=== PATIENT | male | born 1990 | race Caucasian/White ===

== ENCOUNTER 2020-11-30 11:43 | Emergency (ER) | payer SELFPAY ==
[2020-11-30] MEDS ORDERED: Ketorolac 30 MG/ML SDV IM ONE (13:17)
--- NOTE | 2020-11-30 13:23 | EDM.PDOC ---
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), no regular dentist filling fell out 2 wk ago, slight ache x 1w, inc'd pain this AM that has not gotten better, not taken meds - Related Data Home Meds: Home Meds Amoxicillin 500 mg PO TID #21 tab 11/30/20 [Rx] Lidocaine 2% [Xylocaine 2% Viscous] 15 ml PO ASDIRECTED #1 cup 11/30/20 [Rx] ED ROS GENERAL - Review of Systems Review Of Systems: See Below Constitutional: Reports: No Symptoms HEENT: Reports: Dental Pain Respiratory: Reports: No Symptoms Cardiovascular: Reports: No Symptoms Endocrine: Reports: No Symptoms GI/Abdominal: Reports: No Symptoms : Reports: No Symptoms Musculoskeletal: Reports: No Symptoms Skin: Reports: No Symptoms Neurological: Reports: No Symptoms Psychiatric: Reports: No Symptoms Hematologic/Lymphatic: Reports: No Symptoms Immunologic: Reports: No Symptoms ED EXAM, GENERAL - Physical Exam Exam: See Below Exam Limited By: No Limitations General Appearance: Alert, WD/WN, Other (holding left mandible in hand, appears uncomfortable) Nose: Normal Inspection Throat/Mouth: Other (tooth #18 with midline caries that has filling in anterior 2/3rd, filling missing in posterior 2/3rd, gingiva with no red/swell, mild tender to palpation, no soft tissue swell of cheek, no Lns) Head: Atraumatic, Normocephalic Neck: Normal Inspection, Supple, Non-Tender, Full Range of Motion. No: Lymphadenopathy (R), Lymphadenopathy (L) Course - Vital Signs Last Recorded V/S: Last Vital Signs Temp 36.0 C L 11/30/20 11:43 Pulse 74 11/30/20 11:43 Resp 17 11/30/20 11:43 BP 139/93 H 11/30/20 11:43 Pulse Ox 99 11/30/20 11:43 - Orders/Labs/Meds Orders: Active Orders 24 hr Category Date Time Status Ketorolac [Toradol] Med 11/30/20 13:17 Once 60 mg IM ONETIME ONE - Re-Assessments/Exams Free Text/Narrative Re-Assessment/Exam: 11/30/20 13:30 typical dental pain/abscess without complication, take no meds DIRECTOR PAID MEDIA, should respond well to meds pt understands he will need to see a dentist Departure - Departure Time of Disposition: 13:18 Disposition: Home, Self-Care 01 Condition: Good Clinical Impression: Pain, dental, Dental abscess - Discharge Information *PRESCRIPTION DRUG MONITORING PROGRAM REVIEWED*: Not Applicable *COPY OF PRESCRIPTION DRUG MONITORING REPORT IN PATIENT ORION: Not Applicable Prescriptions: Amoxicillin 500 mg PO TID #21 tab Lidocaine 2% [Xylocaine 2% Viscous] 15 ml PO ASDIRECTED #1 cup Instructions: Dental Pain, Dental Abscess Referrals: PCP,None [Primary Care Provider] - Additional Instructions: For pain, take acetaminophen 325 mg 3 tabs and ibuprofen 200 mg 3 tabs 4 times a day (meals and bedtime) for 2 days, longer if needed. For pain, put a thin layer of 2% viscous lidocaine on a cotton ball and bite down every hour as needed. For infection, take amoxicillin 500 mg 1 tab 3 times a day for 7 days. Use ice for 10 minutes every hour as needed. Drink cold liquids and eat cool, soft food. See a dentist in one week Sepsis Event Note (ED) - Focused Exam Vital Signs: Vital Signs Temp Pulse Resp BP Pulse Ox 11/30/20 11:43 36.0 C L 74 17 139/93 H 99 - My Orders Last 24 Hours: My Active Orders 11/30/20 13:17 Ketorolac [Toradol] 60 mg IM ONETIME ONE - Assessment/Plan Last 24 Hours: My Active Orders 11/30/20 13:17 Ketorolac [Toradol] 60 mg IM ONETIME ONE
== END 2020-11-30 13:34 | disposition home or self-care (01) ==
LOC: FB.ED 11:43
DX: K04.7 Periapical abscess without sinus (principal); K02.9 Dental caries, unspecified
CPT/HCPCS: 96372; 99282; J1885